=== PATIENT | female | born 2000 | race Two or more races ===

== ENCOUNTER 2023-05-21 22:21 | Emergency (ER) | payer OTHER ==
[~2023-05-21] VITALS: Ht 152.4 cm; Wt 84.7 kg
[2023-05-21 22:42] VITALS: BP 140/86
[2023-05-21 23:13] LABS: Urine Bacteria NONE SEEN /hpf (None Seen); Urine Blood 3+ /uL (Negative); Urine Mucus FEW (None Seen); Urine Specific Gravity 1.013 (1.001-1.035); Urine WBC 93 /hpf (0 - 5)
== END 2023-05-22 01:31 | disposition left against medical advice (07) ==
LOC: ER 22:21
DX: N93.9 Abnormal uterine and vaginal bleeding, unspecified (principal); M54.50 Low back pain, unspecified; R10.2 Pelvic and perineal pain; Z53.21 Procedure and treatment not carried out due to patient leaving prior to being seen by health care provider
CPT/HCPCS: 76830; 76856; 81001; 81025